=== PATIENT | female | born 1980 | race African-American/Black ===

== ENCOUNTER → 2017-01-04 | Outpatient (CLI) | payer MEDICAID | END | disposition home or self-care (01) | LOC: RAD 13:52 | PROVIDERS: ATTEND Physician Assistant | DX: S90.02XA Contusion of left ankle, initial encounter (principal); S93.692A Other sprain of left foot, initial encounter; M25.472 Effusion, left ankle; X58.XXXA Exposure to other specified factors, initial encounter; Y93.89 Activity, other specified; Y92.89 Other specified places as the place of occurrence of the external cause; Y99.8 Other external cause status ==

== ENCOUNTER 2019-01-11 05:54 | Emergency (ER) | payer BC, MEDICAID ==
[~2019-01-11] VITALS: Ht 168.9 cm; Wt 100.4 kg
[2019-01-11] MEDS ORDERED: METF500T17 PO (06:45)
--- NOTE | 2019-01-11 06:45 | NUR ---
PT IN HOSPITAL GOWN. LABS BEING DRAWN AT THIS TIME. RAD DONE. WILL CONTINUE TO MONITOR.
--- NOTE | 2019-01-11 06:56 | NUR ---
REPORT TO RHINA Duckworth
--- NOTE | 2019-01-11 07:00 | NUR ---
OBTAINED REPORT FROM ANA MARIA SALGUERO
[2019-01-11 07:05] LABS: ALBUMIN 3.5 g/dL (3.4-5.0); ANION GAP 7 mmol/L (5-15); CALCIUM 8.4 mg/dL (8.5-10.1); CHLORIDE 108 mmol/L (98-107); CREATININE 0.58 mg/dL (0.55-1.02)
[2019-01-11 07:09] LABS: FREE T4 (FREE THYROXINE) 0.99 ng/dL (0.76-1.46)
[2019-01-11 07:23] LABS: MEAN CORPUSCULAR HEMOGLOBIN 31.7 pg (27.0-34.8); MEAN CORPUSCULAR VOLUME 96.1 fL (80-100); MEAN PLATELET VOLUME 9.4 fL (7.4-10.4); PLATELET COUNT 302 x10^3/uL (130-400); RED BLOOD COUNT 3.97 x10^6/uL (3.82-5.3); RED CELL DISTRIBUTION WIDTH 14.6 % (9.6-15.2)
[2019-01-11 07:24] LABS: MD SCAN
[2019-01-11 07:25] LABS: BASOPHILS # (AUTO) 0.02 x10^3/uL (0-0.1); BASOPHILS % (AUTO) 0 % (0-1); EOSINOPHILS % (AUTO) 4 % (1-7); LYMPHOCYTES % (AUTO) 22 % (22-44); MONOCYTES # (AUTO) 0.73 x10^3/uL (0.2-0.8); MONOCYTES % (AUTO) 9 % (2-9); NEUTROPHILS # (AUTO) 5.59 x10^3/uL (1.8-6.8); NEUTROPHILS % (AUTO) 66 % (42-75)
[2019-01-11 07:44] VITALS: BP 108/71
--- NOTE | 2019-01-11 07:45 | NUR ---
Patient/Caregiver given discharge instructions and they have confirmed that they understand the instructions. Patient ambulatory with steady gait.
== END 2019-01-11 07:48 | disposition home or self-care (01) ==
LOC: ED 07:40
DX: J30.2 Other seasonal allergic rhinitis (principal); E03.1 Congenital hypothyroidism without goiter
CPT/HCPCS: 36415; 71046; 80048; 82040; 84439; 84443; 84703; 85025; 93005; 99284

== ENCOUNTER → 2019-05-07 | Outpatient (CLI) | payer MEDICAID ==
[~2019-05-07] MED LIST: METF500T17 PO; None per pt
[2019-05-07 11:23] LABS: MEAN CORPUSCULAR HEMOGLOBIN 31.5 pg (27.0-34.8); MEAN CORPUSCULAR HGB CONC 33.2 g/dL (32.4-35.8); MEAN PLATELET VOLUME 9.4 fL (7.4-10.4); PLATELET COUNT 328 x10^3/uL (130-400); RED BLOOD COUNT 4.27 x10^6/uL (3.82-5.3); RED CELL DISTRIBUTION WIDTH 13.9 % (9.6-15.2)
[2019-05-07 11:25] LABS: ALANINE AMINOTRANSFERASE 25 U/L (12-78); ALBUMIN 3.9 g/dL (3.4-5.0); ANION GAP 4 mmol/L (5-15); CALCIUM 8.8 mg/dL (8.5-10.1); CHLORIDE 109 mmol/L (98-107); CREATININE 0.67 mg/dL (0.55-1.02)
[2019-05-07 11:28] LABS: ALKALINE PHOSPHATASE 68 U/L (45-117); BILIRUBIN,TOTAL 0.6 mg/dL (0.2-1.0); TOTAL PROTEIN 7.4 g/dL (6.4-8.2)
[2019-05-07 12:34] LABS: BASOPHILS # (AUTO) 0.02 x10^3/uL (0-0.1); BASOPHILS % (AUTO) 0 % (0-1); EOSINOPHILS # (AUTO) 0.11 x10^3/uL (0-0.4); EOSINOPHILS % (AUTO) 1 % (1-7); LYMPHOCYTES # (AUTO) 1.56 x10^3/uL (1-3.4); LYMPHOCYTES % (AUTO) 20 % (22-44); MD SCAN; MONOCYTES # (AUTO) 0.61 x10^3/uL (0.2-0.8); MONOCYTES % (AUTO) 8 % (2-9); NEUTROPHILS # (AUTO) 5.48 x10^3/uL (1.8-6.8); NEUTROPHILS % (AUTO) 70 % (42-75)
== END | disposition home or self-care (01) ==
LOC: STAR 10:12
PROVIDERS: ATTEND Specialist
DX: Z01.818 Encounter for other preprocedural examination (principal)
CPT/HCPCS: 36415; 80053; 85025; 93005

== ENCOUNTER 2019-05-13 09:50 | Observation (INO) | payer MEDICAID ==
[~2019-05-13] VITALS: Ht 165.1 cm; Wt 99.5 kg
[2019-05-13] MEDS ORDERED: LACTATED RINGERS 1,000 ML IV SCH (10:22)
[2019-05-13] MEDS ORDERED: ACETAMINOPHEN 500 MG TABLET PO ONE (10:30)
[2019-05-13] MEDS ORDERED: GABAPENTIN 300 MG CAPSULE PO ONE (10:30)
[2019-05-13] MEDS ORDERED: SCOPOLAMINE PATCH, 1.5MG PATCH.TD72 TD ONE (10:30)
[2019-05-13 10:50] LABS: HCG UR SG 1.026 (1.003-1.030)
[2019-05-13] MEDS ORDERED: MIDAZOLAM 1 MG/ML, 2ML ONE (13:10)
[2019-05-13] MEDS ORDERED: FENTANYL PF 250 MCG/5ML ONE (13:11)
[2019-05-13] MEDS ORDERED: CEFAZOLIN 1,000 MG ONE (13:41)
[2019-05-13] MEDS ORDERED: DEXAMETHASONE 4 MG/ML, 1ML ONE (13:41)
[2019-05-13] MEDS ORDERED: ROCURONIUM 10MG/ML,5ML ONE (13:41)
[2019-05-13] MEDS ORDERED: PROPOFOL 10 MG/ML, 20ML ONE (13:41)
[2019-05-13] MEDS ORDERED: SUCCINYLCHOLINE 20 MG/ML, 10ML ONE (13:41)
[2019-05-13] MEDS ORDERED: ONDANSETRON 2MG/ML, 2ML ONE (13:41)
[2019-05-13] MEDS ORDERED: hydrALAzine 20 MG/ML, 1ML IV PRN (14:30)
[2019-05-13] MEDS ORDERED: OXYcodone 5 MG/5 ML ORAL.SOL UDC PO PRN (14:30)
[2019-05-13] MEDS ORDERED: PROMETHAZINE 25 MG/ML, 1ML IV PRN ×2 (14:30→16:30)
[2019-05-13] MEDS ORDERED: ALBUTEROL SULFATE 2.5 MG/3 ML NPPB PRN (14:30)
[2019-05-13] MEDS ORDERED: KETOROLAC 30 MG/1 ML IV PRN (14:30)
[2019-05-13] MEDS ORDERED: METOCLOPRAMIDE 5 MG/ML, 2ML IV PRN (14:30)
[2019-05-13] MEDS ORDERED: ONDANSETRON 2MG/ML, 2ML IVPush PRN (14:30)
[2019-05-13] MEDS ORDERED: LABETALOL 5MG/ML, 20ML IV PRN (14:30)
[2019-05-13] MEDS ORDERED: HYDROmorphone 1 MG/ML, 1ML INJ IV PRN ×2 (14:30→16:30)
[2019-05-13] MEDS ORDERED: MEPERIDINE/PF 25MG/0.5ML IVPush PRN (14:30)
[2019-05-13] MEDS ORDERED: HYDROmorphone 1 MG/ML, 1ML VIAL ONE (16:09)
[2019-05-13] MEDS ORDERED: MEPERIDINE/PF 25MG/ML,1ML ONE (16:09)
[2019-05-13] MEDS ORDERED: OXYcodone 5 MG/5 ML ORAL.SOL UDC ONE (16:09)
[2019-05-13] MEDS ORDERED: FENTANYL PF 100 MCG/2ML ONE (16:09)
[2019-05-13] MEDS: OXYcodone 5 MG/5 ML ORAL.SOL UDC PO PRN ×2 (16:32→20:41)
[2019-05-13] MEDS: FENTANYL PF 100 MCG/2ML IV PRN ×2 (16:36→16:44)
[2019-05-13] MEDS: D5%-LACTATED RINGERS 1,000 ML IV SCH (18:00)
[2019-05-13] MEDS ORDERED: HYDROmorphone 2 MG/ML, 1ML IV PRN (18:00)
[2019-05-13] MEDS ORDERED: BISACODYL 10 MG SUPP PR PRN (18:00)
[2019-05-13] MEDS ORDERED: MEPERIDINE/PF 100 MG/ML IM PRN (18:00)
[2019-05-13] MEDS ORDERED: ONDANSETRON 2MG/ML, 2ML IV PRN (18:00)
[2019-05-13 20:08] VITALS: BP 121/83
[2019-05-13] MEDS: SIMETHICONE 80 MG CHEW TAB PO SCH (20:18)
[2019-05-13] MEDS ORDERED: CEFAZOLIN PMX 2GM/50ML 50 ML IVPB ONE (21:00)
[2019-05-13] MEDS: KETOROLAC 30 MG/1 ML IV SCH (21:59)
[2019-05-14 00:50] VITALS: BP 96/59
[2019-05-14] MEDS: D5%-LACTATED RINGERS 1,000 ML IV SCH ×2 (02:00→10:00)
[2019-05-14 03:54] VITALS: BP 107/71
[2019-05-14] MEDS: KETOROLAC 30 MG/1 ML IV SCH ×2 (04:04→10:40)
[2019-05-14] MEDS: OXYcodone 5 MG/5 ML ORAL.SOL UDC PO PRN ×2 (06:05→14:08)
[2019-05-14 08:10] VITALS: BP 105/73
[2019-05-14] MEDS ORDERED: TRIAMCINOLONE CREAM (09:41)
[2019-05-14] MEDS ORDERED: OXYC10TA6 PO (09:42)
[2019-05-14] MEDS ORDERED: IBUP200T49 PO (09:43)
[2019-05-14] MEDS: SIMETHICONE 80 MG CHEW TAB PO SCH (10:40)
[2019-05-14 12:02] VITALS: BP 110/69
[2019-05-15] MEDS ORDERED: IBUPROFEN 600 MG TABLET PO SCH (06:00)
== END 2019-05-14 14:43 | disposition home or self-care (01) ==
LOC: OUT 09:50 → EDSTATUS 12:00 → 4NE 17:20 → OUT 17:22 → 4NE 17:22 → DCLOUNGE 05-14 14:29
PROVIDERS: ADMIT Specialist; ATTEND Specialist
DX: D25.9 Leiomyoma of uterus, unspecified (principal); N73.1 Chronic parametritis and pelvic cellulitis; R19.00 Intra-abdominal and pelvic swelling, mass and lump, unspecified site
CPT/HCPCS: 00840; 36415; 58180; 81025; 85014; 85018; 86850; 86900; 88305; 88307; 96365; 96375; 96376; G0378; J0330; J0690; J1100; J1885; J2175; J2250; J2405; J2704; J3010; J7120

== ENCOUNTER 2020-06-28 15:16 | Emergency (ER) | payer MEDICAID ==
[~2020-06-28] VITALS: Ht 162.6 cm; Wt 101.7 kg
[~2020-06-28 15:16] MED LIST changes: +IBUP200T49 PO; +OXYC10TA6 PO; +TRIAMCINOLONE CREAM
[2020-06-28] MEDS ORDERED: METHOCARBAMOL 750 MG TABLET PO ONE (17:00)
[2020-06-28] MEDS ORDERED: KETOROLAC 30 MG/1 ML IM ONE (17:00)
[2020-06-28] MEDS ORDERED: KETOROLAC 30 MG/1 ML ONE (17:03)
[2020-06-28] MEDS ORDERED: METHOCARBAMOL 750 MG TABLET ONE (17:03)
[2020-06-28 18:25] VITALS: BP 118/61
--- NOTE | 2020-06-28 18:26 | NUR ---
PT HAS A RIDE HOME. VS STABLE. PT DISCHARGED PER RAMOS JONES
== END 2020-06-28 18:29 | disposition home or self-care (01) ==
LOC: ED 17:47
DX: M47.812 Spondylosis without myelopathy or radiculopathy, cervical region (principal); M54.5 Low back pain; V89.2XXA Person injured in unspecified motor-vehicle accident, traffic, initial encounter; Y93.89 Activity, other specified; Y92.89 Other specified places as the place of occurrence of the external cause; Y99.8 Other external cause status
CPT/HCPCS: 72040; 72110; 72125; 96372; 99284; J1885